=== PATIENT | female | born 1950 | race Caucasian/White ===

== ENCOUNTER 2017-09-08 18:22 | Emergency (ER) | payer OTHER ==
[2017-09-08] MEDS ORDERED: OXYCODONE/APAP 5/325MG PREPACK#4 BTL TAKEHOME ONE (19:12)
[2017-09-08] MEDS ORDERED: ONDANSETRON 4MG PREPACK#2 BTL TAKEHOME ONE (19:12)
--- NOTE | 2017-09-08 19:17 | EDPHY ---
H & P Time Seen by Provider: 09/08/17 18:31 HPI/ROS: CHIEF COMPLAINT: Right shoulder pain HISTORY OF PRESENT ILLNESS: 67-year-old female presents with right shoulder pain. She was throwing a rock at a woodpecker to stop it from pecking. She lost her balance when she threw the rock and fell directly onto her right shoulder. Immediate onset of severe pain in the right shoulder. When she got up, she felt dizzy, like she might faint. She laid down again and felt better. She did not fall or faint. No other injuries. She did not hit her head; no headache or neck pain. ROS: No numbness, weakness, bleeding, syncopal episode, other injury. Past Medical/Surgical History: Denies Social History: No recent alcohol Smoking Status: Never smoked Physical Exam: General Appearance: Alert, pleasant Head: Atraumatic Eyes: No conjunctival erythema ENT, Mouth: Normal inspection Neck: Nontender, range of motion without pain Respiratory: No chest wall tenderness, lungs clear bilaterally Cardiovascular: Regular rate and rhythm Abdomen: Abdomen is soft and nontender Skin: No lacerations, no abrasions Back: No midline T/L/S tenderness Extremities: Right shoulder-tenderness and swelling over the proximal humerus, range of motion of the elbow and wrist without pain Vascular: Radial pulse 2 + Neurological: A&O, normal wrist/office services manager strength, sensation intact to light touch Psychiatric: Mood and affect normal Constitutional: Initial Vital Signs Temperature (C) 36.7 C 09/08/17 18:23 Heart Rate 64 09/08/17 18:23 Respiratory Rate 18 09/08/17 18:23 Blood Pressure 117/81 H 09/08/17 18:23 O2 Sat (%) 100 09/08/17 18:23 O2 Delivery Mode Room Air Allergies/Adverse Reactions: lamotrigine [From Lamictal] Allergy (Mild, Verified 09/08/17 18:29) Rash paroxetine HCl [From Paxil] Allergy (Mild, Verified 09/08/17 18:29) Rash sertraline HCl [From Zoloft] Allergy (Mild, Verified 09/08/17 18:29) Rash soy Allergy (Mild, Verified 09/08/17 18:29) Rash Home Medications: Medication Instructions Recorded Escitalopram Oxalate [Lexapro] 10 mg PO 09/08/17 Levothyroxine [Synthroid 88 mcg 88 mcg PO DAILY06 09/08/17 (*)] Ondansetron Odt [Zofran Odt 4 mg 4 mg PO Q4 PRN #6 tab 09/08/17 (*)] oxyCODONE/APAP 5/325 [Percocet 1 tab PO Q4 PRN #15 tab 09/08/17 5/325 (*)] Medical Decision Making - Diagnostics Imaging Results: XRay: right proximal humerus fx, mildly displaced/angulated Imaging: I viewed and interpreted images myself ED Course/Re-evaluation: A sling was placed on the right arm. Percocet 1 tablet orally given. Initially dizzy with ambulation. After oral fluids/food, and pain control with Percocet, pt felt much better, was able to ambulate and did not feel dizzy. Pt confirms that she did not feel dizzy prior to the injury. Dizziness likely vasovagal response to pain. I feel that she is safe/stable for d/c. Consulted with Dr. Kelley, larisa f/u in the office on Sunday. Differential Diagnosis: includes though not limited to open fx, dislocation, neurovasc compromise - Data Points Medications Given: Discontinued Medications Ondansetron HCl (Zofran Odt 4 Mg Prepack#2) 1 btl TAKEHOME EDNOW ONE Stop: 09/08/17 19:13 Last Admin: 09/08/17 19:43 Dose: 1 btl Ondansetron HCl (Zofran Odt) 4 mg PO EDNOW ONE Stop: 09/08/17 19:40 Last Admin: 09/08/17 19:42 Dose: 4 mg Oxycodone/Acetaminophen (Percocet 5/325mg Prepack#4) 1 btl TAKEHOME EDNOW ONE Stop: 09/08/17 19:13 Last Admin: 09/08/17 19:43 Dose: 1 btl Oxycodone/Acetaminophen (Percocet 5/325) 1 tab PO EDNOW ONE Stop: 09/08/17 19:40 Last Admin: 09/08/17 19:43 Dose: 1 tab Departure - Departure Disposition: Home, Routine, Self-Care Clinical Impression: Proximal humerus fracture Condition: Good Instructions: Oxycodone/Acetaminophen (By mouth), Ondansetron (By mouth), Proximal Humerus Fracture (ED) Additional Instructions: You may take Tylenol 650 mg every 4 hr as needed for pain. Percocet 1 tablet every 6 hr as needed for pain. Percocet also contains Tylenol so do not take Percocet and Tylenol the same time. Zofran 1 tablet under the tongue every 6 hr as needed for nausea. Referrals: JIM GIBSON [Primary Care Provider] - As per Instructions Dea Kelley MD [Medical Doctor] - As per Instructions (Call on Sunday to make an appointment with Dr. Kelley.) Prescriptions: Ondansetron Odt [Zofran Odt 4 mg (*)] 4 mg PO Q4 PRN #6 tab PRN Reason: Nausea oxyCODONE/APAP 5/325 [Percocet 5/325 (*)] 1 tab PO Q4 PRN #15 tab PRN Reason: pain
[2017-09-08] MEDS ORDERED: OXYCODONE/APAP 5/325 TAB ONE (19:37)
[2017-09-08] MEDS ORDERED: ONDANSETRON DISINTEGRATING 4 MG TAB ONE (19:38)
[2017-09-08] MEDS ORDERED: ONDANSETRON DISINTEGRATING 4 MG TAB PO ONE (19:39)
[2017-09-08] MEDS ORDERED: OXYCODONE/APAP 5/325 TAB PO ONE (19:39)
[2017-09-08 20:43] VITALS: BP 153/99
== END 2017-09-08 20:42 | disposition home or self-care (01) ==
DX: S42.201A Unspecified fracture of upper end of right humerus, initial encounter for closed fracture (principal); W18.09XA Striking against other object with subsequent fall, initial encounter
CPT/HCPCS: 73030; 99284; A4565